=== PATIENT | male | born 1990 | race Caucasian/White ===

== ENCOUNTER 2016-12-19 20:28 | Emergency (ER) | payer MEDICAID ==
[~2016-12-19] VITALS: Ht 180.3 cm; Wt 125.1 kg
[~2016-12-19 20:28] MED LIST: AMOX-291 PO
[2016-12-19 20:31] VITALS: BP 146/86
[2016-12-19] MEDS ORDERED: IBUPROFEN 200 MG TABLET PO ONE (23:00)
[2016-12-19] MEDS ORDERED: IBUPROFEN 200 MG TABLET ONE (23:07)
== END 2016-12-19 23:59 | disposition home or self-care (01) ==
LOC: ED 23:54
DX: S50.02XA Contusion of left elbow, initial encounter (principal); X58.XXXA Exposure to other specified factors, initial encounter; Y93.89 Activity, other specified; Y92.89 Other specified places as the place of occurrence of the external cause; Y99.8 Other external cause status
CPT/HCPCS: 99284

== ENCOUNTER 2017-01-10 16:51 | Emergency (ER) | payer MEDICAID ==
[~2017-01-10] VITALS: Ht 177.8 cm; Wt 123.4 kg
[2017-01-10] MEDS ORDERED: MAALOX/HYOSCYAMINE/LIDOCAINE 45 ML BOTTLE PO ONE (17:30)
[2017-01-10] MEDS ORDERED: FAMOTIDINE 20 MG/2 ML IVP ONE (17:30)
[2017-01-10] MEDS ORDERED: ONDANSETRON 2MG/ML, 2ML IVPush ONE (17:30)
[2017-01-10] MEDS ORDERED: SODIUM CHLORIDE 0.9% 1,000ML IVBOLUS ONE (17:30)
[2017-01-10 17:57] LABS: BLOOD UREA NITROGEN 9 mg/dL (7-18)
[2017-01-10 18:00] LABS: ASPARTATE AMINO TRANSFERASE 30 U/L (15-37)
[2017-01-10] MEDS ORDERED: SODIUM CHLORIDE FLUSH 10ML SYR IVF ONE (18:00)
[2017-01-10] MEDS ORDERED: FAMOTIDINE 20 MG/2 ML ONE (18:21)
[2017-01-10] MEDS ORDERED: ONDANSETRON 2MG/ML, 2ML ONE (18:21)
[2017-01-10] MEDS ORDERED: MAALOX/HYOSCYAMINE/LIDOCAINE 45 ML BOTTLE ONE (18:21)
[2017-01-10 19:43] VITALS: BP 106/66
== END 2017-01-10 19:45 | disposition home or self-care (01) ==
LOC: ED 19:30
DX: K29.00 Acute gastritis without bleeding (principal); R11.2 Nausea with vomiting, unspecified; K21.9 Gastro-esophageal reflux disease without esophagitis; J45.909 Unspecified asthma, uncomplicated; F17.200 Nicotine dependence, unspecified, uncomplicated
CPT/HCPCS: 36415; 80053; 81003; 83690; 85025; 96361; 96374; 96375; 99284; J2405; J7030; S0028

== ENCOUNTER 2019-11-10 09:46 | Emergency (ER) | payer MEDICAID ==
[~2019-11-10] VITALS: Ht 177.8 cm; Wt 144.5 kg
--- NOTE | 2019-11-10 10:14 | NUR ---
THIS IS 29 YO MALE WHO PRESENTS TO THE ER C/O LUMPS TO THE BACK OF HIS HEAD THAT HE NOTICED THIS AM. PT DENIES DIZZINESS, MAN OR VISION CHANGES. LUMPS ARE TENDER TO PALP. PT AO X 4. SKIN PWD. RESP EVEN AND UNLABORED. PT ABLE TO MOVE ALL EXTREMITIES W/O DIFFICULTY. PT ON CONT BP AND O2 MONITORS.
[2019-11-10 10:45] VITALS: BP 127/81
== END 2019-11-10 10:49 | disposition home or self-care (01) ==
LOC: ED 10:26
DX: L23.5 Allergic contact dermatitis due to other chemical products (principal); L03.811 Cellulitis of head [any part, except face]
CPT/HCPCS: 99283